=== PATIENT | male | born 1985 | race Two or more races ===

== ENCOUNTER 2021-10-08 11:40 | Inpatient (IN) | payer OTHER ==
[~2021-10-08] VITALS: Ht 167.6 cm; Wt 46.7 kg
[2021-10-08] MEDS ORDERED: LEVETIRACETAM 1000MG PREMIX 100 ML IV ONE (12:15)
[2021-10-08] MEDS ORDERED: SODIUM CHLORIDE 0.9% 1,000 ML IV ONE (12:30)
[2021-10-08 12:37] LABS: BASOPHILS % 0.4 % (0.0-2.0); EOSINOPHILS % 0.2 % (0.0-5.0); HEMATOCRIT. 36.9 % (42.0-52.0); HEMOGLOBIN. 12.6 g/dL (14.0-18.0); LYMPHOCYTES % 16.9 % (20.0-50.0); MEAN CORPUSCULAR HEMOGLOBIN 32.1 pg (28.0-32.0); MEAN CORPUSCULAR VOLUME 93.6 fL (80.0-94.0); MEAN PLATELET VOLUME 6.5 fl (7.4-10.4); MONOCYTES % 10.9 % (2.0-8.0); NEUTROPHILS % 71.6 % (40.0-76.0); PLATELET 164 x1000/uL (130-400); RED BLOOD CELL COUNT 3.94 mill/uL (4.7-6.1); RED CELL DISTRIBUTION WIDTH 13.8 % (11.6-14.6)
[2021-10-08 12:44] LABS: CHLORIDE 77 mEq/L (98-107)
[2021-10-08 12:48] LABS: ETHANOL BLOOD < 10 mg/dL
[2021-10-08] MEDS ORDERED: SODIUM CHLORIDE 0.9% 1,000 ML IV STA (13:39)
[2021-10-08] MEDS: POTASSIUM CHLORIDE 20MEQ TABLET SR PO SCH ×3 (13:50→18:10)
[2021-10-08] MEDS ORDERED: KETOROLAC 15MG/ML VIAL IV NR (14:00)
[2021-10-08 14:43] LABS: CLARITY URINE CLEAR (CLEAR); COLOR URINE YELLOW (YELLOW); KETONES URINE NEGATIVE (NEGATIVE); LEUKOCYTE ESTERASE URINE NEGATIVE (NEGATIVE); NITRITE URINE NEGATIVE (NEGATIVE); OCCULT BLOOD URINE NEGATIVE (NEGATIVE); PROTEIN URINE NEGATIVE (NEGATIVE); SPECIFIC GRAVITY URINE 1.013 (1.005-1.030); UROBILINOGEN URINE 0.2 E.U./dL (0.2-1.0)
[2021-10-08 15:03] LABS: SODIUM URINE RANDOM 11 mEq/L
[2021-10-08 15:04] LABS: *AMPHETAMINES SCREEN URINE PRESUMTIVE POSITIVE (NEGATIVE); *BARBITURATES SCREEN URINE NEGATIVE (NEGATIVE); *BENZODIAZEPINES SCREEN URINE NEGATIVE (NEGATIVE); *COCAINE SCREEN URINE NEGATIVE (NEGATIVE)
[2021-10-08 15:05] LABS: CANNABINOID URINE SCREEN PRESUMTIVE POSITIVE (NEGATIVE); METHADONE URINE SCREEN NEGATIVE (NEGATIVE); OPIATES URINE SCREEN NEGATIVE (NEGATIVE); PHENCYCLIDINE URINE SCREEN PRESUMTIVE POSITIVE (NEGATIVE)
[2021-10-08 19:33] LABS: CHLORIDE 92 mEq/L (98-107)
[2021-10-08] MEDS ORDERED: CLONIDINE 0.1MG TABLET PO PRN (20:15)
[2021-10-08] MEDS ORDERED: ONDANSETRON HCL 4MG/2ML INJ IV PRN (20:15)
[2021-10-08] MEDS ORDERED: ACETAMINOPHEN 325MG TABLET PO PRN (20:15)
[2021-10-08] MEDS: SODIUM CHLORIDE 0.9% 1,000 ML IV SCH ×2 (20:39→21:14)
[2021-10-08] MEDS: ENOXAPARIN 40MG/0.4ML SYR SUBCUT SCH (20:42)
[2021-10-08] MEDS ORDERED: LEVETIRACETAM 500MG PREMIX 100 ML IV SCH (21:00)
[2021-10-08] MEDS ORDERED: RISP3TAB62 PO (22:36)
[2021-10-08 22:38] LABS: CHLORIDE 91 mEq/L (98-107)
[2021-10-08] MEDS: PANTOPRAZOLE SODIUM 40 MG/VIAL IV SCH (22:39)
[2021-10-08 23:12] VITALS: BP 134/90
[2021-10-09] VITALS: BP 125/84
[2021-10-09] MEDS ORDERED: SODIUM CHL 0.9% + KCL 20MEQ/L 1,000 ML IV SCH
[2021-10-09] MEDS: LORAZEPAM 2MG/ML CPJ IV PRN ×3 (00:40→21:37)
[2021-10-09] MEDS: POTASSIUM CHLORIDE INJ 10 MEQ in SODIUM CHLORIDE 0.9% 1,000 ML IV SCH ×2 (01:08→16:46)
[2021-10-09 04:00] VITALS: BP 136/95
[2021-10-09 06:11] LABS: BASOPHILS % 0.1 % (0.0-2.0); EOSINOPHILS % 0.1 % (0.0-5.0); HEMATOCRIT. 30.4 % (42.0-52.0); HEMOGLOBIN. 10.5 g/dL (14.0-18.0); LYMPHOCYTES % 21.9 % (20.0-50.0); MEAN CORPUSCULAR HEMOGLOBIN 33.2 pg (28.0-32.0); MONOCYTES % 11.5 % (2.0-8.0); NEUTROPHILS % 66.4 % (40.0-76.0); PLATELET 137 x1000/uL (130-400); RED BLOOD CELL COUNT 3.17 mill/uL (4.7-6.1); RED CELL DISTRIBUTION WIDTH 13.7 % (11.6-14.6)
[2021-10-09 06:47] LABS: CHLORIDE 93 mEq/L (98-107)
[2021-10-09 08:00] VITALS: BP 117/86
[2021-10-09] MEDS: POTASSIUM CHLORIDE 20MEQ TABLET SR PO SCH ×2 (10:02→18:18)
[2021-10-09 12:00] VITALS: BP 107/63
[2021-10-09] MEDS: LEVETIRACETAM 500MG PREMIX 100 ML IV SCH ×2 (13:14→21:50)
[2021-10-09] MEDS ORDERED: HYDROCODONE/ACETAMINOPHEN 5/325MG TABLET PO PRN (13:30)
[2021-10-09] MEDS ORDERED: NALOXONE HCL 0.4MG/ML VIAL IV PRN (13:30)
[2021-10-09 15:25] LABS: BG BASE EXCESS -1.7 mmol/L (-2.0-2.0); BG CARBOXYHEMOGLOBIN 0.3 % (0.5-1.5); BG DEOXYHEMOGLOBIN 3.7 % (0.0-5.0); BG FRACTION INSPIRED OXYGEN 21; BG HCO3 ACT 22.4 mmol/L (22.0-26.0); BG METHEMOGLOBIN 0.2 % (0.0-1.5); BG OXYGEN SATURATION 96.3 % (92.0-98.5); BG OXYHEMOGLOBIN 95.8 % (94.0-97.0); BG PCO2 35.3 mmHg (35.0-45.0); BG PO2 94.4 mmHg (75.0-100.0); BG SAMPLE SITE RIGHT RADIAL; BG TOTAL HEMOGLOBIN 10.2 g/dL (12.0-18.0); BG VENT MODE ROOM AIR
[2021-10-09] MEDS ORDERED: CEFTRIAXONE 1 G PREMIX 50 ML IV SCH (16:15)
[2021-10-09] MEDS ORDERED: CEFTRIAXONE 1,000 MG in DEXTROSE 5% WATER 50 ML IV SCH (18:00)
[2021-10-09 20:00] VITALS: BP 100/58
[2021-10-09] MEDS: ENOXAPARIN 40MG/0.4ML SYR SUBCUT SCH (21:16)
[2021-10-09] MEDS: PANTOPRAZOLE SODIUM 40 MG/VIAL IV SCH (21:16)
[2021-10-09] MEDS ORDERED: POTASSIUM CHLORIDE 20MEQ TABLET SR PO NR (23:00)
[2021-10-09 23:44] LABS: CREATINE KINASE 377 IU/L (39-308); CREATINE KINASE MB FRACTION 2.7 ng/mL (0.5-3.6)
[2021-10-10 04:00] VITALS: BP 110/60
[2021-10-10] MEDS: POTASSIUM CHLORIDE INJ 10 MEQ in SODIUM CHLORIDE 0.9% 1,000 ML IV SCH (05:36)
[2021-10-10] MEDS ORDERED: THIAMINE HCL 100MG TABLET PO SCH (09:00)
[2021-10-10] MEDS ORDERED: ENOXAPARIN 30MG/0.3ML SYR SUBCUT SCH (20:00)
== END 2021-10-10 08:20 | disposition left against medical advice (07) | DRG 426 ==
LOC: ER 11:40 → ENRESERV 20:23 → 7EST 22:28
PROVIDERS: ADMIT Internal Medicine; ATTEND Internal Medicine
DX: E87.1 Hypo-osmolality and hyponatremia (principal); G92.8 Other toxic encephalopathy; E72.20 Disorder of urea cycle metabolism, unspecified; N17.9 Acute kidney failure, unspecified; G40.909 Epilepsy, unspecified, not intractable, without status epilepticus; E86.0 Dehydration; E86.1 Hypovolemia; E87.6 Hypokalemia; F10.10 Alcohol abuse, uncomplicated; F20.9 Schizophrenia, unspecified; I10 Essential (primary) hypertension; I42.9 Cardiomyopathy, unspecified; F19.10 Other psychoactive substance abuse, uncomplicated; I45.6 Pre-excitation syndrome; F17.210 Nicotine dependence, cigarettes, uncomplicated; Z53.21 Procedure and treatment not carried out due to patient leaving prior to being seen by health care provider; K86.1 Other chronic pancreatitis; Z87.19 Personal history of other diseases of the digestive system; Z91.19 Patient's noncompliance with other medical treatment and regimen; Z79.899 Other long term (current) drug therapy
CPT/HCPCS: 36415; 36600; 71045; 76705; 80053; 80305; 80320; 81003; 82140; 82375; 82550; 82553; 82805; 82962; 83735; 83930; 83935; 84132; 84300; 84484; 85025; 93005; 93970; 99285; C9113; J0696; J1650; J1885; J1953; J2060; J2405; J3480; J7030; J7040; J7060; G0480

== ENCOUNTER 2021-11-05 11:14 | Emergency (ER) | payer OTHER ==
[~2021-11-05] VITALS: Ht 170.2 cm; Wt 51.0 kg
[~2021-11-05 11:14] MED LIST: RISP3TAB62 PO
[2021-11-05] MEDS: ACETAMINOPHEN 500MG TABLET PO NR ×2 (11:42→11:46)
[2021-11-05] MEDS: IBUPROFEN 800MG TABLET PO NR ×2 (11:42→11:46)
[2021-11-05 11:46] VITALS: BP 140/80
== END 2021-11-05 11:26 | disposition left against medical advice (07) ==
LOC: ER 11:21
DX: S20.212A Contusion of left front wall of thorax, initial encounter (principal); Y08.89XA Assault by other specified means, initial encounter; Y93.89 Activity, other specified; Y92.89 Other specified places as the place of occurrence of the external cause; Y99.8 Other external cause status
CPT/HCPCS: 99283